=== PATIENT | female | born 2005 | race Two or more races ===

== ENCOUNTER 2023-07-16 12:38 | Emergency (ER) | payer SELFPAY ==
[2023-07-16 12:56] VITALS: BP 107/72; PULSE 107; RESP 14; TEMP 36.9; O2SAT 99; BMI 16.5
--- NOTE | 2023-07-16 13:01 | ED.GENADULT ---
HPI - General Adult General Chief complaint: Urogenital-Female Stated complaint: diff urinating Time Seen by Provider: 07/16/23 13:41 Source: patient Mode of arrival: ambulatory Limitations: no limitations History of Present Illness HPI narrative: 17 yold female presents to the ED for dysuria and increase urinary frequency. patient states no abdominal pain, nausea, vomtting, fever, chills, flank pain, vaginal discharge, vaginal lesions, or hematuria. Related Data Previous Rx's Medication Instructions Recorded cephalexin 500 mg capsule 500 mg PO QID 7 days #28 caps 07/16/23 Allergies Allergy/AdvReac Type Severity Reaction Status Date / Time No Known Allergies Allergy Verified 07/16/23 12:56 Review of Systems Review of Systems: dyusria and increase urinary frequency Yes all other systems are reviewed and are negative [facility] Social History Social History Advance Directives: No Physical Exam ED Vital Signs: Vital Signs - 24 hr 07/16/23 12:56 Temperature 98.5 F Pulse Rate 107 H Respiratory Rate 14 Blood Pressure 107/72 Pulse Oximetry 99 Oxygen Delivery Method Room Air BMI result Body Mass Index 16.5 Const General: cooperative, healthy appearing, comfortable, no acute distress, well developed and alert Orientation/consciousness: oriented to person, oriented to place, oriented to time and patient oriented x3 HENMT Head: Yes normal to inspection, Yes No palpable skull fracture present, Yes normocephalic and Yes atraumatic Eyes General: appearance normal, both eyes and all related structures Neck Neck: Yes normal visual inspection, Yes full ROM, Yes no lymphadenopathy, Yes no meningeal signs, Yes trachea midline, Yes supple, No anterior neck swelling and No tender Chest Chest palpation & inspection: normal inspection of the chest and normal palpation of entire chest wall Resp Effort & Inspection: normal respiratory effort and able to speak in complete sentences Auscultation: clear to auscultation bilaterally Cardio Jugular venous distension: no JVD Heart sounds: S1 normal heart sound present and S2 normal heart sound present GI Inspection: Yes normal to inspection and No abdominal wall ecchymosis Palpation (GI): Soft to palpation, not firm, nontender, no guarding and not rigid General: Yes no CVA tenderness Back/Spine/Pelvis Back: no CVA tenderness and back tenderness Skin General skin exam: no rashes or lesions noted, elasticity normal and turgor normal Neuro General: oriented to person, oriented to place, oriented to time, patient oriented x3, gait normal, tone normal, moves all extremities, Normal light touch and pain sensation, no meningeal signs and no focal motor deficits Extrem General: Yes normal to inspection and Yes full ROM Psych Appearance: grossly normal, well kempt and not disheveled Course Course Course Narrative: RME: 17 yold female presents to the ED for dysuria and increase uriinary frequency. Patient states abhay bdominal pain, nuasea, vomitting, fever, chills, or flank pain. uA and ur preg ordered Medical Decision Making Medical Decision Making MDM Narrative: 17 yold female presents to the ED for dysuria and increase urinary frequency. Patient states no abdominal pain, nausea, vomitting, flank pain, fever, chills, vaginal discharge, or vaginal lesions. UA shows uTI. patient well appearing. Differential Diagnosis Differential Diagnoses: The differential diagnosis associated with the presentation includes (UTI, , kidney stones, pyelonephritis) Lab Data [facility] Lab Attestation statement: I reviewed the patient's lab results. Labs: Lab Results 07/16/23 Range/Units 13:13 Urine Color Yellow Urine Appearance Turbid Urine pH 6.5 (5.0-9.0) Ur Specific Ten Sleep 1.025 (1.005-1.025) Urine Protein 100 (2+) H (Neg-Trace) mg/dL Urine Glucose (UA) Negative (Negative) mg/dL Urine Ketones Trace (Negative) mg/dL Urine Blood Small (1+) H (Negative) Urine Nitrite Negative (Negative) Ur Leukocyte Esterase Large (3+) H (Negative) Urine RBC 11-20 H (0-2) /HPF Urine WBC >50 H (0-5) /HPF Ur Squamous Epith Cells 11-20 (0-2) /HPF Urine Bacteria 3+ (None Seen) Hyaline Casts 0-2 (0-2) /LPF Urine Test NEGATIVE (NEGATIVE) External Record Review External record reviewed: Other (Prior visits) Prescription Management I considered prescription management with: Antibiotic Discharge Plan Discharge Clinical Impression: Urinary tract infection Patient Disposition: Home, Self-Care Instructions: Urinary Tract Infection in Women (ED) Additional Instructions: Return to the ED for any flank pain, nuasea, abdominal pain, chills, hematuria, or any other concernign symptoms. Please follow up with your PCP. Prescriptions: New cephalexin 500 mg capsule 500 mg PO QID 7 Days Qty: 28 0RF Stand Alone Forms: Work/School Release Interventions: ED Discharge Assessment Last Done: 07/16/23 14:02 Discharge Date/Time: 07/16/23 14:02 Print Language: Italian
[2023-07-16 13:21] LABS: Appearance Urine Turbid; Color Urine Yellow; Glucose Urine UA Negative (Negative); Leukocyte Esterase Urine Large (3+) (Negative); Nitrite Urine Negative (Negative); PH 6.5 (5.0-9.0); Specific Gravity - Urine 1.025 (1.005-1.025); UMIC TRIGGER UACC YES; Urine Blood Small (1+) (Negative); Urine Ketones Trace mg/dL (Negative); Urine Protein 100 (2+) mg/dL (Neg-Trace)
[2023-07-16 13:23] LABS: UPreg QC Valid YES; Urine Pregnancy NEGATIVE (NEGATIVE)
[2023-07-16 13:24] LABS: Bacteria Urine 3+ (None Seen); Hyaline Casts Urine 0-2 /LPF (0-2); UACC Culture Trigger YES; WBC Urine >50 /HPF (0-5)
== END 2023-07-16 14:02 | disposition home or self-care (01) ==
PROVIDERS: Physician Assistant; Emergency Provider Emergency Medicine
DX: N39.0 Urinary tract infection, site not specified (principal); R35.0 Frequency of micturition; R30.0 Dysuria
CPT/HCPCS: 81001; 81025; 87086; 99282; 99283

== ENCOUNTER 2025-03-30 18:47 | Emergency (ER) | payer OTHER, SELFPAY ==
--- NOTE | ~2025-03-30 | XR_ITS ---
CLINICAL HISTORY: trauma 3 views right foot Comparison: None Findings: There is no fracture or dislocation. Joint spaces appear normal. There is no radiopaque foreign body. Impression: Unremarkable right foot radiographs. This document has been electronically signed by: Navid Mahoney MD on 03/31/2025 00:54:33
[2025-03-30 18:57] VITALS: BP 97/63; PULSE 90; RESP 16; TEMP 36.6; O2SAT 99; BMI 18.6
--- NOTE | 2025-03-30 19:00 | ED_ITS ---
HPI - General Adult General Chief complaint: Wound/Laceration Stated complaint: right big toe inj Time Seen by Provider: 03/30/25 23:38 Source: patient Limitations: no limitations History of Present Illness ED Provider: Kristin Andrews PA-C HPI narrative: 19-year-old female presents with right great toe injury. Patient states she stubbed her toe, lifting the nail. She is currently 4 months Related Data Previous Rx's ?Medication ?Instructions ?Recorded cephalexin 500 mg capsule 500 mg PO QID 7 days #28 cap s 07/16/23 Allergies Allergy/AdvReac Type Severity Reaction Status Date / Time No Known Allergies Allergy Verified 03/30/25 18:59 Review of Systems Review of Systems: Yes all other systems are reviewed and are negative Constitutional: Constitutional: Denies fatigue and Denies fever(s) Musculoskeletal: Musculoskeletal: Reports arthralgias and Reports joint swelling Endocrine: Endocrine: Denies fatigue PMFSH Past Medical History Attestation statement: The following information was validated with the patient. Social History Social History Smoked in Last 30 Days: No Use of substances other than those prescribed or required for medical reasons: No Advance Directives: No Advance Directives Information Provided: Yes Do you have a plan to hurt others: No Plan Patient : Yes Physical Exam ED Vital Signs: Vital Signs - 24 hr 03/30/25 18:57 03/30/25 20:00 03/30/25 22:11 Temperature 97.8 F 96.7 F L 96.7 F L Pulse Rate 90 84 84 Respiratory Rate 16 16 16 Blood Pressure 97/63 107/68 107/68 Pulse Oximetry 99 100 98 Oxygen Delivery Method Room Air Room Air Room Air BMI result Body Mass Index 18.6 Const Other: Alert Orientation/consciousness: patient oriented x3 Resp Effort & Inspection: normal respiratory effort Cardio Other: Normal peripheral perfusion Skin Other: Warm dry no rash Neuro General: patient oriented x3, gait normal, no focal motor deficits and CN's II- XI intact bilaterally Extrem Other: Right great toe is not deformed, the nail is lifted, still intact within the nail bed Psych Other: Cooperative Course Course Course Narrative: RME performed by Corinne Kaplan PA-C. Patient is a 19 year old assigned female at presenting to the emergency department with an avulsed right great toe nail. Patient states she accidentally hit her right great toe on a bin and caused her nail to lift. Detailed physical exam and review of systems are deferred to the refrigerating oiler. Patient placed back in the waiting room pending room availability. Medications Administered Discontinued Medications Generic Name Dose Route Start Last Admin Trade Name Walker PRN Reason Stop Dose Admin Lidocaine HCl 10 ml 03/31/25 00:47 03/31/25 01:00 Lidocaine Hcl 1 % 20 Ml Vial INFILTRATI 03/31/25 00:48 10 ml ONCE ONE Administration Procedures Procedure Narrative Procedure Narrative: Toenail removal, right great toe avulsion Area prepped with aseptic technique. 5 mL of 1% lidocaine used for digital block. The nail was removed. The area was dressed with bacitracin and gauze dressing. Patient tolerated the procedure well Medical Decision Making Medical Decision Making MDM Narrative: 19-year-old female presents with right great toe injury. Patient states she stubbed her toe, lifting the nail. She is currently 4 months No chronic issues History: Per patient I have considered the following differential diagnoses: Fracture, dislocation, nail avulsion, laceration, contusion Plan: X-ray obtained there was no fracture. I will remove the nail. We will be sending the patient with the Podiatry contact. I have independently reviewed the following tests: X-ray right foot:indings: There is no fracture or dislocation. Joint spaces appear normal. There is no radiopaque foreign body. Impression: Unremarkable right foot radiographs. Discharge Plan Discharge Clinical Impression: Avulsion of toenail of right foot Patient Disposition: Home, Self-Care Instructions: Nail Avulsion (ED), Nail Removal (ED) Additional Instructions: The x-ray revealed no fracture of the foot. The toenail had to be removed. See home care instructions. Keep the area clean and dry. Watch for signs of infection which would include redness, swelling, warmth, pus draining from the site, a red line tracking up your leg anterior groin or fever. If you develop any of these symptoms, seek medical attention. Otherwise, follow up with the shipping and receiving. I have provided you with a contact. Call tomorrow to schedule an appointment. Prescriptions: No Action cephalexin 500 mg capsule 500 mg PO QID 7 Days Qty: 28 0RF Referrals: Krys Kowalski DPM [Physician, Podiatry] Referral Note: Right great toenail avulsion/removal Stand Alone Forms: Work/School Release Print Language: Kazakh
[2025-03-30 20:00] VITALS: BP 107/68; PULSE 84; RESP 16; TEMP 35.9; O2SAT 100
[2025-03-30 22:11] VITALS: BP 107/68; PULSE 84; RESP 16; TEMP 35.9; O2SAT 98
[2025-03-31] MEDS: Lidocaine HCl 1 % 20 ML VIAL 10 ML INFILTRATI (01:00)
== END 2025-03-31 02:05 | disposition home or self-care (01) ==
PROVIDERS: Emergency Provider Emergency Medicine
DX: O9A.212 Injury, poisoning and certain other consequences of external causes complicating pregnancy, second trimester (principal); S91.201A Unspecified open wound of right great toe with damage to nail, initial encounter; W18.49XA Other slipping, tripping and stumbling without falling, initial encounter; Y93.89 Activity, other specified; Y92.9 Unspecified place or not applicable; Y99.9 Unspecified external cause status; Z3A.16 16 weeks gestation of pregnancy
CPT/HCPCS: 11730; 73630; 99284; J2003

== ENCOUNTER → 2025-03-31 | Outpatient (BNV) | payer OTHER, SELFPAY | PROVIDERS: Visit Provider Radiology Diagnostic Radiology | DX: S90.931A Unspecified superficial injury of right great toe, initial encounter (principal); W23.0XXA Caught, crushed, jammed, or pinched between moving objects, initial encounter | CPT/HCPCS: 73630 ==